=== PATIENT | female | born 2000 | race Caucasian/White ===

== ENCOUNTER 2022-02-11 22:12 | Emergency (ER) | payer BC | END 2022-02-11 23:42 | disposition home or self-care (01) | LOC: CSHERS 22:12 | DX: O99.891 Other specified diseases and conditions complicating pregnancy (principal); O99.282 Endocrine, nutritional and metabolic diseases complicating pregnancy, second trimester; E86.0 Dehydration; R55 Syncope and collapse; Z3A.20 20 weeks gestation of pregnancy | CPT/HCPCS: 93005 ==